=== PATIENT | female | born 1960 | race Native Hawaiian/Other Pacific Islander ===

== ENCOUNTER 2020-01-23 15:34 | Outpatient (CLI) | payer OTHER | END 2020-01-23 23:32 | disposition home or self-care (01) | LOC: RAD 15:34 | DX: R07.89 Other chest pain (principal) ==

== ENCOUNTER 2020-04-11 09:24 | Outpatient (CLI) | payer OTHER | END 2020-04-11 19:25 | disposition home or self-care (01) | LOC: RAD 09:24 | PROVIDERS: ATTEND Internal Medicine | DX: M54.5 Low back pain (principal) ==

== ENCOUNTER 2020-08-23 15:17 | Outpatient (CLI) | payer OTHER | END 2020-08-23 23:50 | disposition home or self-care (01) | LOC: RAD 15:17 | PROVIDERS: ATTEND Internal Medicine | DX: R10.11 Right upper quadrant pain (principal); R09.1 Pleurisy ==

== ENCOUNTER 2020-08-27 07:45 | Outpatient (CLI) | payer OTHER ==
[2020-08-27 08:32] LABS: PLATELET COUNT 243 K/uL (152-353)
[2020-08-27 08:42] LABS: POTASSIUM 3.8 mmol/L (3.6-5.2)
== END 2020-08-27 21:43 | disposition home or self-care (01) ==
LOC: US 07:45
PROVIDERS: ATTEND Internal Medicine
DX: R10.11 Right upper quadrant pain (principal)
CPT/HCPCS: 36415; 80053; 81000; 85027

== ENCOUNTER 2021-04-08 21:10 | Emergency (ER) | payer OTHER ==
[~2021-04-08] VITALS: Ht 160 cm; Wt 108.4 kg
[2021-04-08 22:24] LABS: PLATELET COUNT 188 K/uL (152-353)
[2021-04-08 22:30] LABS: POTASSIUM 3.6 mmol/L (3.6-5.2)
[2021-04-08 23:21] VITALS: BP 165/81; TEMP 97.9
== END 2021-04-08 23:43 | disposition home or self-care (01) ==
LOC: ED 21:10
PROVIDERS: Emergency Medicine
DX: R42 Dizziness and giddiness (principal)
CPT/HCPCS: 36415; 80048; 80307; 81000; 85027; 96372; 99283; J1885; J2405

== ENCOUNTER 2021-05-21 07:45 | Outpatient (CLI) | payer OTHER | END 2021-05-21 19:01 | disposition home or self-care (01) | LOC: US 07:45 | PROVIDERS: ATTEND Internal Medicine | DX: R11.0 Nausea (principal) ==

== ENCOUNTER 2022-07-28 08:14 | Outpatient (CLI) | payer OTHER | END 2022-07-28 18:58 | disposition home or self-care (01) | LOC: NM 08:14 | PROVIDERS: ATTEND Internal Medicine | DX: R10.11 Right upper quadrant pain (principal) | CPT/HCPCS: A9537 ==